=== PATIENT | male | born 1940 | race Caucasian/White ===

== ENCOUNTER 2017-12-20 13:42 | Outpatient (CLI) | payer MEDICARE, BC | END 2017-12-20 13:43 | disposition home or self-care (01) | DRG 554 | LOC: CONVCARE 13:42 | PROVIDERS: ATTEND Orthopaedic Surgery | DX: M19.90 Unspecified osteoarthritis, unspecified site (principal) | CPT/HCPCS: 73030 ==

== ENCOUNTER 2018-04-04 14:53 | Outpatient (CLI) | payer MEDICARE, BC | END 2018-04-04 14:54 | disposition home or self-care (01) | DRG 552 | LOC: CONVCARE 14:53 | PROVIDERS: ATTEND Orthopaedic Surgery | DX: M54.5 Low back pain (principal); M47.9 Spondylosis, unspecified | CPT/HCPCS: 72120 ==

== ENCOUNTER 2018-04-18 09:34 | Outpatient (CLI) | payer MEDICARE, BC ==
[2018-04-18 10:07] LABS: CREATININE 1.11 mg/dl (0.80-1.30)
== END 2018-04-18 09:35 | disposition home or self-care (01) | DRG 392 ==
LOC: CONVCARE 09:34
PROVIDERS: ATTEND Orthopaedic Surgery
DX: R10.11 Right upper quadrant pain (principal); M47.816 Spondylosis without myelopathy or radiculopathy, lumbar region; M47.817 Spondylosis without myelopathy or radiculopathy, lumbosacral region; N20.0 Calculus of kidney
CPT/HCPCS: 36415; 74176; 82565